=== PATIENT | male | born 1965 | race Caucasian/White ===

== ENCOUNTER 2017-01-06 08:03 | Day surgery (SDC) | payer MEDICAID ==
[2017-01-06] MEDS ORDERED: Lactated Ringers 1,000 ML IV SCH (08:30)
[2017-01-06] MEDS ORDERED: Albuterol/Ipratropium 3.0-0.5 MG/3 ML Neb Soln NEB ONE (09:27)
[2017-01-06] MEDS ORDERED: fentaNYL 100 MCG/2 ML SDV ONE (09:30)
[2017-01-06] MEDS ORDERED: Propofol 200 MG/20 ML SDV ONE ×2 (09:30→09:54)
[2017-01-06] MEDS ORDERED: Midazolam 1 MG/ML 2 ML SDV ONE (09:30)
[2017-01-06 11:13] VITALS: BP 138/97
--- NOTE | 2017-01-09 09:47 | OR ---
DATE OF PROCEDURE: 01/06/2017 PREOPERATIVE DIAGNOSIS: Colon cancer screening. POSTOPERATIVE DIAGNOSES: Diverticulosis. Two small rectal polyps adjacent to each other. PROCEDURE PERFORMED: Colonoscopy to the cecum with biopsy resection of two small rectal polyps adjacent to each other, sent to the laboratory as one specimen. ANESTHESIA: IV anesthesia with monitored anesthesia care. INDICATION: This 51-year-old white male is referred for a colonoscopy for colon cancer screening. He has never had a colonoscopic exam. I counseled him for the procedure including risks and alternatives, and he gave his informed consent to proceed. DESCRIPTION OF PROCEDURE: The patient was placed in the left lateral decubitus position. IV anesthesia was administered by the Anesthesia Service. Time-out was held. A rectal exam was performed, which was unremarkable. The flexible video Olympus colonoscope was introduced through his anus, up his rectum, and out his colon all the way to the cecum. En route, we saw a few scattered left-sided diverticula. There was no bleeding or inflammation associated with them. Once the cecum was reached, the scope was slowly withdrawn examining the mucosa throughout. No additional mucosal abnormalities were noted until we reached the rectum, where the scope was retroflexed. Here in the distal rectum, we saw 2 small polyps which were adjacent to each other. They were removed with the biopsy forceps and sent to the laboratory as one specimen. The scope was straightened and removed. He tolerated the procedure well. Fransisco Pace MD /[id number] MAGDA
== END 2017-01-06 11:18 | disposition home or self-care (01) ==
LOC: JP.SDS 08:03
PROVIDERS: ATTEND Surgery
DX: Z12.11 Encounter for screening for malignant neoplasm of colon (principal); K62.1 Rectal polyp; K57.30 Diverticulosis of large intestine without perforation or abscess without bleeding; J44.9 Chronic obstructive pulmonary disease, unspecified; I10 Essential (primary) hypertension; F17.210 Nicotine dependence, cigarettes, uncomplicated
CPT/HCPCS: 45380; J2250; J2704; J3010; J7120; J7620; 88305

== ENCOUNTER 2019-01-12 00:01 | Emergency (ER) | payer MEDICAID, OTHER ==
[2019-01-12 00:26] VITALS: BP 145/93
[2019-01-12] MEDS ORDERED: Oxymetazoline 0.05% Nasal Spray 30 ML Bottle NAS ONE (00:45)
--- NOTE | 2019-01-12 02:12 | EDM.PDOC ---
ED HPI GENERAL MEDICAL PROBLEM - General Chief Complaint: ENT Problem Stated Complaint: NOSEBLEED Time Seen by Provider: 01/12/19 01:25 Source of Information: Reports: Patient History Limitations: Reports: No Limitations - History of Present Illness INITIAL COMMENTS - FREE TEXT/NARRATIVE: This man comes in for a nosebleed. Been going several hours and he can't get it to stop. He's never had problems with nosebleeds in the past. He takes aspirin every day. denies pain Pain Score (Numeric/FACES): 0 - Related Data Allergies Allergy/AdvReac Type Severity Reaction Status Date / Time No Known Allergies Allergy Verified 01/12/19 01:13 Home Meds: Home Meds Acetaminophen/Diphenhydramine [Tylenol Pm Ex-Strength Caplet] 1 each PO BEDTIME PRN 01/03/17 [History] Albuterol Sulfate [Proair Hfa] 2 inh IH Q4H PRN 01/03/17 [History] Aspirin [Adult Low Dose Aspirin EC] 81 mg PO DAILY 01/03/17 [History] Hydrochlorothiazide 25 mg PO DAILY 01/03/17 [History] Lisinopril 40 mg PO DAILY 01/03/17 [History] Loratadine 10 mg PO DAILY 01/03/17 [History] Varenicline [Chantix] 1 mg PO BID 01/03/17 [History] Past Medical History HEENT History: Reports: None Cardiovascular History: Reports: Hypertension Respiratory History: Reports: COPD Gastrointestinal History: Reports: Hemorrhoids Musculoskeletal History: Reports: Fracture Neurological History: Reports: Concussion, Migraines - Infectious Disease History Infectious Disease History: Reports: Chicken Pox, Mumps - Past Surgical History HEENT Surgical History: Reports: Other (See Below) Other HEENT Surgeries/Procedures: tooth implant Social & Family History - Family History Family Medical History: Noncontributory - Tobacco Use Smoking Status *Q: Current Every Day Smoker Years of Tobacco use: 40 Packs/Tins Daily: 1.5 - Caffeine Use Caffeine Use: Reports: Coffee - Recreational Drug Use Recreational Drug Use: No ED ROS ENT - Review of Systems Review Of Systems: ROS reveals no pertinent complaints other than HPI. ED EXAM, ENT - Physical Exam Exam: See Below Exam Limited By: No Limitations General Appearance: Alert, WD/WN, Mild Distress Nose: Other (Moderately brisk bleeding mostly from the right nostril. Septum shows no evidence of bleeding. Bleeding appears to be from posterior) Course - Vital Signs Last Recorded V/S: Last Vital Signs Temp 37.1 C 01/12/19 01:14 Pulse 76 01/12/19 01:14 Resp 14 01/12/19 01:14 BP 145/93 H 01/12/19 01:14 Pulse Ox 94 L 01/12/19 01:14 - Orders/Labs/Meds Meds: Medications Discontinued Medications Generic Name Dose Route Start Last Admin Trade Name Cortes PRN Reason Stop Dose Admin Oxymetazoline HCl 1 ml 01/12/19 00:45 01/12/19 01:23 Nasal Decongestant [place] LEI 01/12/19 00:46 1 ml ONETIME ONE Administration - Re-Assessments/Exams Free Text/Narrative Re-Assessment/Exam: 01/12/19 02:14 Patient cleared his nose by blowing out clots. He then received a few squirts of Afrin spray in the right nostril but this did not slow the bleeding. I examined him afterwards and did not find any bleeding from the from the nasal septum therefore I inserted the 7.5 cm Rhino Rocket and inflated it and that stopped the bleeding well. He was examined afterwards there is no bleeding into the nasopharynx. Departure - Departure Time of Disposition: 02:10 Disposition: Home, Self-Care 01 Condition: Fair Clinical Impression: Epistaxis - Discharge Information Referrals: Cristofer Loja MD [Primary Care Provider] - Forms: ED Department Discharge Additional Instructions: Remove the packing on Monday afternoon. You could insert the syringe and draw out the air and the thing will slide out easily. Alternatively you could just cut the tube and the lingual deflate and pull it out that way. Don't take any more aspirin for a few days. Talk with your DrSusan early next week about whether or not you should continue aspirin. If you have more bleeding you can try a couple of squirts of the decongestant nasal spray if that doesn't stop then you' ll just have to come back to the ER. The bleed appears to be from the back of the nose and these are much more difficult to stop.
== END 2019-01-12 02:35 | disposition home or self-care (01) ==
LOC: JP.ED 00:01
DX: R04.0 Epistaxis (principal); I10 Essential (primary) hypertension; J44.9 Chronic obstructive pulmonary disease, unspecified; F17.210 Nicotine dependence, cigarettes, uncomplicated; Z79.82 Long term (current) use of aspirin
CPT/HCPCS: 30903; 99283; A9270

== ENCOUNTER 2019-01-13 00:35 | Emergency (ER) | payer OTHER ==
[2019-01-13] MEDS: Oxymetazoline 0.05% Nasal Spray 30 ML Bottle NAS ONE (02:05)
[2019-01-13] MEDS: [UNRECOGNIZED DRUG - OTHER] TOP ONE (02:38)
[2019-01-13 04:07] VITALS: BP 147/86
--- NOTE | 2019-01-13 04:32 | EDM.PDOC ---
ED HPI GENERAL MEDICAL PROBLEM - General Chief Complaint: ENT Problem Stated Complaint: NOSEBLEED Time Seen by Provider: 01/13/19 01:16 Source of Information: Reports: Patient History Limitations: Reports: No Limitations - History of Present Illness INITIAL COMMENTS - FREE TEXT/NARRATIVE: This gentleman was seen last night with a posterior nosebleed of the right nostril. The bleeding stopped after insertion of a 7.5 cm Rhino Rocket. Tonight he began bleeding from the left nostril. He has not tried to further inflate the balloon Headache Pain Score (Numeric/FACES): 3 denies pain Pain Score (Numeric/FACES): 0 - Related Data Allergies Allergy/AdvReac Type Severity Reaction Status Date / Time No Known Allergies Allergy Verified 01/13/19 00:41 Home Meds: Home Meds Acetaminophen/Diphenhydramine [Tylenol Pm Ex-Strength Caplet] 1 each PO BEDTIME PRN 01/03/17 [History] Albuterol Sulfate [Proair Hfa] 2 inh IH Q4H PRN 01/03/17 [History] Aspirin [Adult Low Dose Aspirin EC] 81 mg PO DAILY 01/03/17 [History] Hydrochlorothiazide 25 mg PO DAILY 01/03/17 [History] Lisinopril 40 mg PO DAILY 01/03/17 [History] Loratadine 10 mg PO DAILY 01/03/17 [History] Varenicline [Chantix] 1 mg PO BID 01/03/17 [History] Past Medical History HEENT History: Reports: None Cardiovascular History: Reports: Hypertension Respiratory History: Reports: COPD Gastrointestinal History: Reports: Hemorrhoids Musculoskeletal History: Reports: Fracture Neurological History: Reports: Concussion, Migraines - Infectious Disease History Infectious Disease History: Reports: Chicken Pox, Mumps - Past Surgical History HEENT Surgical History: Reports: Other (See Below) Other HEENT Surgeries/Procedures: tooth implant Social & Family History - Family History Family Medical History: Noncontributory - Tobacco Use Smoking Status *Q: Current Every Day Smoker Years of Tobacco use: 40 Packs/Tins Daily: 1.5 - Caffeine Use Caffeine Use: Reports: Coffee - Recreational Drug Use Recreational Drug Use: No ED ROS ENT - Review of Systems Review Of Systems: ROS reveals no pertinent complaints other than HPI. ED EXAM, ENT - Physical Exam Exam: See Below Exam Limited By: No Limitations General Appearance: Alert, WD/WN, Mild Distress Nose: Other (The Rhino Rocket is in place in the right nostril and the balloon is inflated. He does have continued bleeding from the left nostril.) ED ENT PROCEDURES - Epistaxis Procedure Indication: Epistaxis, Uncontrolled Recent anticoagulants/antiplatlets: No Uncontrolled HTN: No Recent septal/nasal surgery: No Site of bleeding: Right Nare Clearing of clots: Patient Blew Nose Topical Meds: Other (Oxymetazoline) Ice pack to area: No Posterior packing: Long Inflatable Nasal Tampon (Saturated with oxymetazoline. 1.5 cm x 10 cm piece of Surgicel draped over the Rhino Rocket) Complications: No Course - Vital Signs Last Recorded V/S: Last Vital Signs Temp 36.4 C 01/13/19 00:45 Pulse 59 L 01/13/19 04:06 Resp 15 01/13/19 00:45 BP 147/86 H 01/13/19 04:06 Pulse Ox 94 L 01/13/19 04:06 - Orders/Labs/Meds Labs: Laboratory Tests 01/13/19 01/13/19 01/13/19 Range/Units 01:07 01:07 01:07 WBC 12.7 H (4.5-11.0) K/uL RBC 4.41 (4.30-5.90) M/uL Hgb 14.0 (12.0-15.0) g/dL Hct 40.7 (40.0-54.0) % MCV 92 (80-98) fL MCH 32 H (27-31) pg MCHC 34 (32-36) % Plt Count 357 (150-400) K/uL Neut % (Auto) 66 (36-66) % Lymph % (Auto) 22 L (24-44) % [place] % (Auto) 10 H (2-6) % Eos % (Auto) 2 (2-4) % Baso % (Auto) 1 (0-1) % PT 11.6 (9.5-12.0) sec INR 1.06 (0.80-1.20) APTT 28.4 (27.0-36.0) sec Sodium 133 L (140-148) mmol/L Potassium 3.4 L (3.6-5.2) mmol/L Chloride 96 L (100-108) mmol/L Carbon Dioxide 27 (21-32) mmol/L Anion Gap 13.4 (5.0-14.0) mmol/L BUN 8 (7-18) mg/dL Creatinine 0.9 (0.8-1.3) mg/dL Est Cr Clr Drug Dosing 102.26 mL/min Estimated GFR (MDRD) > 60 (>60) Glucose 105 (74-106) mg/dL Calcium 8.7 (8.5-10.1) mg/dL Meds: Medications Discontinued Medications Generic Name Dose Route Start Last Admin Trade Name Wingq PRN Reason Stop Dose Admin Gelatin 1 each 01/13/19 01:34 01/13/19 02:38 Gelfoam Size 50 TOP 01/13/19 01:35 1 each ONETIME ONE Administration Oxymetazoline HCl 1 ml 01/13/19 01:39 01/13/19 02:05 Nasal Decongestant [place] LEI 01/13/19 01:40 1 ml ONETIME ONE Administration - Re-Assessments/Exams Free Text/Narrative Re-Assessment/Exam: 01/13/19 04:29 Case was discussed with ENT Dr. BANEGAS at [facility] in [place]. He recommended reinserting the Rhino Rocket saturated with Afrin. Afterwards he recommended inserting small pieces of Gelfoam or Surgicel above the Rhino Rocket. He also recommended a second Rhino Rocket in the left nostril to apply pressure from both sides. On removal of the original Rhino Rocket I noted that the bleeding was only at the very posterior tip of the appliance. A new Rhino Rocket saturated with oxymetazoline and with a 1 cm x 10 cm strip of Surgicel draped over it was then inserted and the right nostril. This was inflated and bleeding stopped. The patient has been observed for the past couple of hours for hypertension. Blood pressure has just been mildly elevated. On labs are noted his potassium slightly low at 3.4. This patient does take hydrochlorothiazide and lisinopril. He is not on any potassium so will add that. He will need follow-up on Monday. Departure - Departure Time of Disposition: 04:32 Disposition: Home, Self-Care 01 Condition: Fair Clinical Impression: Posterior epistaxis - Discharge Information Referrals: Cristofer Loja MD [Primary Care Provider] - Additional Instructions: He will need to follow-up on Monday with one of the ENT physicians. I spoke with Dr. BANEGAS at [facility] in [place] and your best bet would be to call them first thing in the morning on Monday. You could also call [facility] in [place] or the [facility] in [place]. Continue all your usual medications.. The oxymetazoline that was used to saturate the Rhino Rocket can raise your blood pressure. It would be a good idea if you can check your blood pressure a couple of times at home. Mild elevations are okay. Your potassium level was slightly low at 3.4. The medication hydrochlorothiazide tends to make you lose potassium. Rather than a new prescription just get some salt substitute which is pure potassium chloride and take about 1/4 teaspoon per day. Be sure your doctor knows that you are doing this. A low potassium can lead to heart arrhythmias.
== END 2019-01-13 04:48 | disposition home or self-care (01) ==
LOC: JP.ED 00:35
DX: R04.0 Epistaxis (principal); I10 Essential (primary) hypertension; J44.9 Chronic obstructive pulmonary disease, unspecified; F17.210 Nicotine dependence, cigarettes, uncomplicated; Z79.899 Other long term (current) drug therapy
CPT/HCPCS: 30905; 36415; 80048; 85025; 85610; 85730; 99283-25; A9270-GY

== ENCOUNTER 2019-04-01 14:47 | Emergency (ER) | payer OTHER ==
[2019-04-01 15:09] VITALS: BP 122/75
--- NOTE | 2019-04-01 15:39 | EDM.PDOC ---
ED HPI GENERAL MEDICAL PROBLEM - General Chief Complaint: Lower Extremity Injury/Pain Stated Complaint: right ankle pain Time Seen by Provider: 04/01/19 15:25 Source of Information: Reports: Patient, Family History Limitations: Reports: No Limitations - History of Present Illness INITIAL COMMENTS - FREE TEXT/NARRATIVE: 53-year-old male jumped off a fence last night hurting his right ankle. Today it 's extremely swollen, painful, and he is unable to bear weight. No other injury. Onset: Sudden Duration: Hour(s): (12 hours ago) Location: Reports: Lower Extremity, Right Associated Symptoms: Reports: No Other Symptoms Right Ankle Pain Score (Numeric/FACES): 5 - Related Data Allergies Allergy/AdvReac Type Severity Reaction Status Date / Time No Known Allergies Allergy Verified 04/01/19 15:15 Home Meds: Home Meds Albuterol Sulfate [Proair Hfa] 2 inh IH Q4H PRN 01/03/17 [History] Hydrochlorothiazide 25 mg PO DAILY 01/03/17 [History] Lisinopril 40 mg PO DAILY 01/03/17 [History] Past Medical History HEENT History: Reports: None Cardiovascular History: Reports: Hypertension Respiratory History: Reports: COPD Gastrointestinal History: Reports: Hemorrhoids Musculoskeletal History: Reports: Fracture Neurological History: Reports: Concussion, Migraines - Infectious Disease History Infectious Disease History: Reports: Chicken Pox, Mumps - Past Surgical History HEENT Surgical History: Reports: Other (See Below) Other HEENT Surgeries/Procedures: tooth implant Social & Family History - Family History Family Medical History: Noncontributory - Tobacco Use Smoking Status *Q: Heavy Tobacco Smoker Years of Tobacco use: 30 Packs/Tins Daily: 1 - Caffeine Use Caffeine Use: Reports: Coffee - Alcohol Use Days Per Week of Alcohol Use: 3 Number of Drinks Per Day: 2 Total Drinks Per Week: 6 - Recreational Drug Use Recreational Drug Use: No Review of Systems - Review of Systems Review Of Systems: See Below Constitutional: Denies: Fever Respiratory: Denies: Shortness of Breath Cardiovascular: Denies: Chest Pain GI/Abdominal: Denies: Abdominal Pain Skin: Reports: Bruising (Some bruising is developing around the ankle) Neurological: Denies: Paresthesia ED EXAM, GENERAL - Physical Exam Exam: See Below Exam Limited By: No Limitations General Appearance: Alert, No Apparent Distress (Looks uncomfortable but not distressed) Respiratory/Chest: No Respiratory Distress Extremities: Other (Exam is otherwise limited to the lower extremities. The right ankle has diffuse swelling with developing ecchymosis especially medially. There is pitting edema both the foot and ankle with exquisite tenderness to any palpation) Course - Vital Signs Last Recorded V/S: Last Vital Signs Temp 98.6 F 04/01/19 15:13 Pulse 103 H 04/01/19 15:13 Resp 16 04/01/19 15:13 BP 122/75 04/01/19 15:13 Pulse Ox 96 04/01/19 15:13 - Re-Assessments/Exams Free Text/Narrative Re-Assessment/Exam: 04/01/19 16:21 An ankle x-ray confirmed a bimalleolar fracture with slightly shifted talus. A posterior Ortho-Glass splint, 23 inches, was applied to the foot and the patient was given 10 hydrocodone for extra pain control. He was also fitted with crutches. He is to go home and elevate the leg overnight and then recheck at the clinic tomorrow to discuss possible surgery. Departure - Departure Time of Disposition: 16:50 Disposition: Home, Self-Care 01 Clinical Impression: Closed bimalleolar fracture of right ankle Qualifiers: Encounter type: initial encounter Qualified Code(s): S82.841A - Displaced bimalleolar fracture of right lower leg, initial encounter for closed fracture - Discharge Information Instructions: Ankle Fracture Referrals: PCP,None [Primary Care Provider] - Forms: ED Department Discharge Care Plan Goals: A regular dose of ibuprofen may be helpful, add stronger pain medication if needed. Elevate the right foot is much as possible until your clinic appointment. Call tomorrow morning for a time. No weightbearing, use crutches at all times.
--- NOTE | 2019-04-01 15:48 | CRLCR ---
Indication: Injury to the right ankle. Technique: Three views of the right ankle were obtained. Comparison: None Findings: A fracture of the distal fibula is identified. A transverse fracture of medial malleolus is identified. There is increased distance between the medial tibiotalar joint space. The talar dome is intact. Impression: Fractures of the distal tibia and fibula. Dictated by Gabriella Grant MD @ Apr 01 2019 3:45PM Signed by Dr. Gabriella Grant @ Apr 01 2019 3:46PM
== END 2019-04-01 16:50 | disposition home or self-care (01) ==
LOC: JP.ED 14:47
DX: S82.841A Displaced bimalleolar fracture of right lower leg, initial encounter for closed fracture (principal); I10 Essential (primary) hypertension; J44.9 Chronic obstructive pulmonary disease, unspecified; F17.210 Nicotine dependence, cigarettes, uncomplicated; Z79.899 Other long term (current) drug therapy; W17.89XA Other fall from one level to another, initial encounter
CPT/HCPCS: 29515; 73610-RT; 99283-25

== ENCOUNTER 2019-04-05 05:55 | Day surgery (SDC) | payer OTHER ==
[2019-04-05] MEDS ORDERED: Nozin Nasal Sanitizer NASBOTH ONE (06:30)
[2019-04-05] MEDS ORDERED: Bupivacaine 0.5% 50 ML MDV ONE (06:40)
[2019-04-05] MEDS ORDERED: Lactated Ringers 1,000 ML IV SCH (07:00)
[2019-04-05] MEDS ORDERED: fentaNYL 250 MCG/5 ML SDV ONE (07:18)
[2019-04-05] MEDS ORDERED: Glycopyrrolate 0.2 MG/ML 5 ML MDV ONE (07:18)
[2019-04-05] MEDS ORDERED: Neostigmine Methylsulfate 1 MG/ML 5 ML Syringe ONE (07:18)
[2019-04-05] MEDS ORDERED: Rocuronium 50 MG/5 ML Vial ONE (07:18)
[2019-04-05] MEDS ORDERED: Ondansetron 4 MG/2 ML SDV ONE (07:18)
[2019-04-05] MEDS ORDERED: Propofol 200 MG/20 ML SDV ONE (07:18)
[2019-04-05] MEDS ORDERED: Dexamethasone 4 MG/ML SDV ONE (07:18)
[2019-04-05] MEDS ORDERED: ceFAZolin 1 GM Vial ONE (08:07)
[2019-04-05] MEDS ORDERED: fentaNYL 100 MCG/2 ML SDV ONE ×2 (09:06→09:18)
[2019-04-05] MEDS ORDERED: hydrOXYzine HCl 100 MG/2 ML SDV IM ONE (09:42)
[2019-04-05] MEDS ORDERED: Ketorolac 60 MG/2 ML SDV IM ONE (09:44)
[2019-04-05] MEDS ORDERED: Acetaminophen/HYDROcodone 325-5 MG Tab PO ONE (10:36)
[2019-04-05 13:04] VITALS: BP 128/77
--- NOTE | 2019-04-05 16:57 | OR ---
DATE OF PROCEDURE: 04/05/2019 PREOPERATIVE DIAGNOSIS: Bimalleolar fracture, right ankle, displaced. POSTOPERATIVE DIAGNOSIS: Bimalleolar fracture, right ankle, displaced. PROCEDURE: Open reduction and internal fixation, right ankle. ANESTHESIA: General. INDICATIONS: Ward is a 53-year-old gentleman who sustained an injury to his right ankle when he jumped a fence earlier this week. He was seen in the emergency room actually the day after the incident and was found to have a displaced fracture. He had moderate-to- severe swelling at that time. He was placed in a splint and has been working on ice and elevation to reduce the swelling since then. He now presents for open reduction and internal fixation. Risks, benefits, and potential complications of the procedure were discussed. DESCRIPTION OF PROCEDURE: After adequate anesthesia was obtained, the patient was placed supine with a tourniquet about the right upper thigh. Right leg was prepped and draped in a sterile fashion. Leg was exsanguinated and tourniquet inflated to 300 mmHg. A longitudinal incision was made over the lateral aspect of the ankle and carried down to the subcutaneous border of the fibula. Fibular fracture was exposed. This was primarily a transverse fracture with a slight oblique component more medially. The fracture was reduced and held with a bone-holding forceps. A Synthes contoured distal fibular plate was utilized. This was secured to the fibula using locking screws distally and 3.5 cortical screws proximally in compression mode. Final position was confirmed using fluoroscopy. There was some lateral shift of the talus preoperatively, and this was corrected with reduction of the fibula. Attention was turned to the medial malleolus. A slight curvilinear incision was made over the medial malleolus and carried down through the subcutaneous tissues. A very small distal medial malleolar fragment was identified, which was displaced and a portion of the periosteum flipped into the joint. The fracture was cleared of soft tissue. A small loose fragment of cartilage was removed from the joint. The joint was irrigated. Small fragment was reduced and held with a bone clamp. Fragment was deemed too small for a screw fixation as it would likely fragment or further fracture the fragment. K-wire was advanced across the fracture site and position confirmed using fluoroscopy. K-wire was bent and tapped into the bone holding the piece in a reduced position. Additional fixation was obtained using #1 Vicryl placed through the deltoid ligament attached to the small fragment, in a figure-of- eight fashion across the fracture site through the thick periosteum proximal to the fracture. Two sutures were placed in this manner, achieving a type of tension band across the fracture. Final position was confirmed using fluoroscopy. Wounds were irrigated. Deep tissues were closed with 0 Vicryl in interrupted fashion. Skin was closed with 2-0 Vicryl and a running 3-0 Monocryl. Steri-Strips were applied. Sterile dressings were placed and a well-padded AO plaster splint was applied with the foot in neutral position. The patient tolerated the procedure well. There were no complications. He was taken from the operating room in a stable condition. Corey Deluna MD /[id number]
== END 2019-04-05 13:00 | disposition home or self-care (01) ==
LOC: JP.SDS 05:55
PROVIDERS: ATTEND Specialist
DX: S82.841A Displaced bimalleolar fracture of right lower leg, initial encounter for closed fracture (principal); I10 Essential (primary) hypertension; J44.9 Chronic obstructive pulmonary disease, unspecified; E66.9 Obesity, unspecified; K21.9 Gastro-esophageal reflux disease without esophagitis; F17.200 Nicotine dependence, unspecified, uncomplicated; X50.1XXA Overexertion from prolonged static or awkward postures, initial encounter; Y93.39 Activity, other involving climbing, rappelling and jumping off; Z79.899 Other long term (current) drug therapy; Z68.31 Body mass index [BMI] 31.0-31.9, adult
CPT/HCPCS: 27814; 36415; 80048; 85027; A9270; C1713; J0690; J1100; J1885; J2405; J2704; J2710; J3010; J3410; J3490; J7120

== ENCOUNTER 2019-09-23 07:20 | Day surgery (SDC) | payer MEDICAID, OTHER, SELFPAY ==
[~2019-09-23 07:20] MED LIST: Bupivacaine 0.5% 30 ML SDV ONE; Lidocaine 1% 20 ML MDV ONE
[2019-09-23] MEDS ORDERED: Nozin Nasal Sanitizer NASBOTH ONE (07:30)
[2019-09-23] MEDS ORDERED: Ondansetron 4 MG/2 ML SDV ONE (07:47)
[2019-09-23] MEDS ORDERED: Glycopyrrolate 0.2 MG/ML 5 ML MDV ONE (07:47)
[2019-09-23] MEDS ORDERED: Propofol 200 MG/20 ML SDV ONE (07:47)
[2019-09-23] MEDS ORDERED: Rocuronium 50 MG/5 ML Vial ONE (07:47)
[2019-09-23] MEDS ORDERED: Dexamethasone 4 MG/ML SDV ONE (07:47)
[2019-09-23] MEDS ORDERED: Succinylcholine 200 MG/10 ML MDV ONE (07:47)
[2019-09-23] MEDS ORDERED: fentaNYL 250 MCG/5 ML SDV ONE ×2 (07:47→10:10)
[2019-09-23] MEDS ORDERED: Neostigmine Methylsulfate 1 MG/ML 5 ML Syringe ONE (07:47)
[2019-09-23] MEDS ORDERED: Lactated Ringers 1,000 ML IV SCH (08:00)
[2019-09-23] MEDS ORDERED: ceFAZolin 2 GM in Premix Bag 1 BAG IV ONE (08:30)
[2019-09-23] MEDS ORDERED: Albuterol/Ipratropium 3.0-0.5 MG/3 ML Neb Soln NEB ONE (08:45)
[2019-09-23] MEDS ORDERED: Sugammadex Sodium 200 MG/2 ML VIAL ONE (10:28)
[2019-09-23] MEDS ORDERED: Ketorolac 60 MG/2 ML SDV IM ONE (10:40)
[2019-09-23 11:54] VITALS: BP 122/63; PULSE 63
--- NOTE | 2019-10-02 18:05 | OR ---
DATE OF PROCEDURE: 09/23/2019 SURGEON: Corey Deluna MD PREOPERATIVE DIAGNOSIS: Retained hardware, right ankle, metal allergy. POSTOPERATIVE DIAGNOSIS: Retained hardware, right ankle, metal allergy. PROCEDURE PERFORMED: Removal of hardware, right ankle, plate and screws from fibula and K- wire from the medial malleolus. ANESTHESIA: General. INDICATIONS: Ward is a 53-year-old gentleman who has had a history of fracture of his right ankle, treated with open reduction and internal fixation. He has had difficulty with wound healing, reaction around the wound, and more lately a diffuse rash and itching. This was made worse by a trial of contact metal discs. Therefore, presents for removal of hardware for a presumed metal allergy. Risks, benefits, potential complications of the procedure were discussed. DESCRIPTION OF PROCEDURE: After adequate anesthesia was obtained, patient was placed supine with a tourniquet about the right upper leg. Right leg was prepped and draped in a sterile fashion. Leg was exsanguinated and tourniquet inflated to 300 mmHg. A small incision was made over the medial malleolus and carried down through the subcutaneous tissues. The K- wire was identified without difficulty. The end was cleared of soft tissue and the K-wire was then removed. Attention was then turned to the lateral aspect of the ankle where the previous incision was utilized. This was carried down through the subcutaneous tissues down to the level of the hardware. Hardware was covered in a normal-appearing layer of scar tissue. No evidence of erythema or other reaction. Soft tissues were cleared from the screws which were then removed without difficulty. Plate was also removed. No evidence of any significant inflammatory reaction in the bone beneath the plate. Using a curette and rongeur, scar tissue was removed in an effort to minimize any remaining inflammatory reaction in the tissues that may be present. This was then thoroughly irrigated. The skin was then closed with 2-0 Vicryl in the deep layers and a running 3-0 Monocryl. Steri-Strips were applied. Light compressive dressing was then placed. The patient tolerated procedure well, there were no complications, taken from the operating room in stable condition. Corey Dleuna MD /[id number]
== END 2019-09-23 12:12 | disposition home or self-care (01) ==
LOC: JP.SDS 07:20
PROVIDERS: ATTEND Specialist
DX: T84.89XA Other specified complication of internal orthopedic prosthetic devices, implants and grafts, initial encounter (principal); I10 Essential (primary) hypertension; Z91.09 Other allergy status, other than to drugs and biological substances; Z87.81 Personal history of (healed) traumatic fracture; Z98.890 Other specified postprocedural states
CPT/HCPCS: 20680; 36415; 80048; 85027; 94640; A9270; J0330; J0690; J1100; J1885; J2405; J2704; J2710; J3010; J3490; J7120; J2001; J7620-GY